=== PATIENT | female | born 1940 | race Caucasian/White ===

== ENCOUNTER 2018-10-09 10:26 | Observation (INO) | payer MEDICARE ==
[~2018-10-09] VITALS: Ht 152.4 cm; Wt 61.0 kg
--- NOTE | 2018-10-09 11:11 | NUR ---
LAB AND XRAY IN WITH PATIENT AT THIS TIME.
--- NOTE | 2018-10-09 11:15 | NUR ---
ALEX SBAR TO BURAK JOHNSON
[2018-10-09 11:30] LABS: BASOPHILS # (AUTO) 0.1 X10'3 (0-0.2); BASOPHILS % (AUTO) 1.3 % (0-1); EOSINOPHILS # (AUTO) 0.2 X10'3 (0-0.9); EOSINOPHILS % (AUTO) 3.5 % (0-6); HEMATOCRIT 39.2 % (35.0-45.0); HEMOGLOBIN 13.5 g/dl (12.0-16.0); LYMPHOCYTES # (AUTO) 2.1 X10'3 (1.1-4.8); MEAN CORPUSCULAR HEMOGLOBIN 31.4 PG (27.0-31.0); MEAN CORPUSCULAR HGB CONC 34.4 g/dL (33.0-36.5); MEAN CORPUSCULAR VOLUME 91.2 FL (78-98); MEAN PLATELET VOLUME 7.9 FL (7.4-10.4); MONOCYTES # (AUTO) 0.6 X10'3 (0-0.9); MONOCYTES % (AUTO) 10.1 % (2-12); NEUTROPHILS # (AUTO) 3.3 X10'3 (1.8-7.7); NEUTROPHILS % (AUTO) 52.1 % (42-75); PLATELET COUNT 403 X10'3 (140-440); RED CELL DISTRIBUTION WIDTH 13.5 % (11.5-14.5); WHITE BLOOD COUNT 6.3 X10'3 (4.5-11.0)
[2018-10-09 11:46] LABS: ALANINE AMINOTRANSFERASE 21 U/L (12-78); ALBUMIN 3.9 G/DL (3.4-5.0); ALBUMIN/GLOBULIN RATIO 1.1 (1.1-1.5); ALKALINE PHOSPHATASE 72 IU/L (46-116); ANION GAP 7 (8-16); ASPARTATE AMINO TRANSFERASE 18 U/L (10-37); BILIRUBIN,TOTAL 0.4 MG/DL (0.1-1.0); BLOOD UREA NITROGEN 12 MG/DL (7-18); BUN/CREATININE RATIO 16.7 (6.6-38.0); CALCIUM 9.6 MG/DL (8.5-10.1); CHLORIDE 102 MMOL/L (99-107); CREATININE 0.72 MG/DL (0.40-0.90); GLUCOSE 82 MG/DL (70-104); POTASSIUM 4.1 MMOL/L (3.5-5.1); SODIUM 139 MMOL/L (135-145); TOTAL CARBON DIOXIDE 29.6 MMOL/L (24-32); TOTAL PROTEIN 7.6 G/DL (6.4-8.2); eGFR 78 ML/MIN
[2018-10-09 11:53] LABS: MAGNESIUM 2.2 MG/DL (1.5-2.4)
[2018-10-09] MEDS ORDERED: MAGN500C16 PO (12:21)
[2018-10-09] MEDS ORDERED: CYAN1TAB41 PO (12:21)
[2018-10-09] MEDS ORDERED: OMEG1CAP13 PO (12:21)
[2018-10-09] MEDS ORDERED: XAL0.005OS OP (12:21)
[2018-10-09] MEDS ORDERED: MULT1TAB74 PO (12:21)
[2018-10-09] MEDS ORDERED: LACT1CAP65 PO (12:21)
[2018-10-09] MEDS ORDERED: ESCI5TAB PO (12:21)
[2018-10-09] MEDS ORDERED: ACET325C5 PO (12:21)
[2018-10-09] MEDS ORDERED: cq10 PO (12:21)
[2018-10-09] MEDS ORDERED: OMEP20TA23 PO (12:21)
[2018-10-09] MEDS ORDERED: TURM538C PO (12:21)
[2018-10-09] MEDS ORDERED: FLAX10007 PO (12:21)
[2018-10-09] MEDS ORDERED: LUTE1CAP5 PO (12:21)
[2018-10-09] MEDS ORDERED: RED600CA2 PO (12:21)
[2018-10-09] MEDS ORDERED: DORZ10DR18 EACHEYE (12:21)
[2018-10-09] MEDS ORDERED: MELA5TAB12 PO (12:21)
[2018-10-09] MEDS ORDERED: LEVO112T5 PO (12:21)
[2018-10-09] MEDS ORDERED: nitroGLYCERIN 0.4mg/hour patch TD ONE (12:40)
[2018-10-09] MEDS ORDERED: enoxaparin 100mg/ml syringe SUBCUT ONE (12:40)
[2018-10-09] MEDS ORDERED: potassium Cl 40MEQ/NS 500ml 500 ML IV PRN ×2 (12:45)
[2018-10-09] MEDS ORDERED: magnesium Cl slow-release 64mg tablet PO PRN (12:45)
[2018-10-09] MEDS ORDERED: ondansetron/PF 4mg/2ml inj IV PRN (12:45)
[2018-10-09] MEDS ORDERED: magnesium 4gm in 100ml NS 100 ML IV PRN (12:45)
[2018-10-09] MEDS ORDERED: enoxaparin 60mg/0.6ml syringe SUBCUT ONE (12:45)
[2018-10-09] MEDS ORDERED: potassium Cl 20 mEq SR tablet PO PRN ×2 (12:45)
[2018-10-09] MEDS ORDERED: magnesium 2GM in 50ml NS 50 ML IV PRN (12:45)
[2018-10-09] MEDS ORDERED: MELA5CAP PO (12:59)
[2018-10-09] MEDS ORDERED: UBID300C PO (13:00)
[2018-10-09] MEDS ORDERED: OMEP-271 PO (13:02)
[2018-10-09] MEDS ORDERED: metoprolol tartrate 1mg/ml inj IV PRN (15:20)
[2018-10-09] MEDS ORDERED: aminophylline 250mg/10ml inj. IV PRN (15:20)
[2018-10-09] MEDS ORDERED: regadenoson 0.4mg/5ml syringe IV ONE (15:20)
[2018-10-09] MEDS ORDERED: nitroGLYCERIN 0.4mg SUBLingual tab SL PRN (15:20)
--- NOTE | 2018-10-09 15:41 | NUR ---
FLOOR UNABLE TO TAKE REPORT AT THIS TIME.
--- NOTE | 2018-10-09 16:37 | NUR ---
Patient in room [facility]. I have received report from Dread JOHNSON and had the opportunity to ask questions and assume patient care. patient appears stable . orientated to room . Daughter present.
[2018-10-09 16:39] VITALS: BP 121/75
[2018-10-09 18:00] VITALS: BP 122/59
--- NOTE | 2018-10-09 18:09 | NUR ---
Problems reprioritized. Patient report given, questions answered & plan of care reviewed with Latha Harden RN.
--- NOTE | 2018-10-09 18:49 | NUR ---
Patient in room [facility]. I have received report from ALEX Emmanuel and had the opportunity to ask questions and assume patient care. Addendum: 10/09/18 at 1850 by Lisa Espinoza RN Amended: Links added.
[2018-10-09] MEDS: levoTHYROXINE 112mcg tablet PO SCH (21:07)
[2018-10-09] MEDS: CITALOpram 10mg tablet PO SCH (21:07)
[2018-10-09] MEDS: acetaminophen 325mg tablet PO PRN (21:09)
[2018-10-09] MEDS: normal saline 1000ml 1,000 ML IV SCH (23:59)
[2018-10-10] VITALS (8 sets, daily range): BP systolic 122–165; BP diastolic 64–92
--- NOTE | 2018-10-10 04:57 | NUR ---
Dr. Santiago came in to see patient and cancelled stress test for today and he ordered to do heart cath instead. Fluids ordered as well. Placed new IV 18gauge. Spoke with the Aid about the prep,(shaving and changing sheets/gown)
[2018-10-10 05:50] LABS: ALBUMIN 3.3 G/DL (3.4-5.0); ANION GAP 6 (8-16); BLOOD UREA NITROGEN 15 MG/DL (7-18); BUN/CREATININE RATIO 21.4 (6.6-38.0); CALCIUM 9.4 MG/DL (8.5-10.1); CHLORIDE 107 MMOL/L (99-107); GLUCOSE 92 MG/DL (70-104); MAGNESIUM 2.1 MG/DL (1.5-2.4); SODIUM 141 MMOL/L (135-145); TOTAL CARBON DIOXIDE 28.5 MMOL/L (24-32); TROPONIN I 0.27 NG/ML (0.0-0.05); eGFR 81 ML/MIN
[2018-10-10 05:55] LABS: BASOPHILS # (AUTO) 0.1 X10'3 (0-0.2); EOSINOPHILS # (AUTO) 0.3 X10'3 (0-0.9); HEMATOCRIT 36.2 % (35.0-45.0); LYMPHOCYTES # (AUTO) 2.7 X10'3 (1.1-4.8); LYMPHOCYTES % (AUTO) 33.4 % (21-51); MEAN CORPUSCULAR HEMOGLOBIN 30.1 PG (27.0-31.0); MEAN CORPUSCULAR HGB CONC 33.2 g/dL (33.0-36.5); MEAN CORPUSCULAR VOLUME 90.7 FL (78-98); MONOCYTES # (AUTO) 0.7 X10'3 (0-0.9); NEUTROPHILS # (AUTO) 4.3 X10'3 (1.8-7.7); NEUTROPHILS % (AUTO) 52.6 % (42-75); PLATELET COUNT 362 X10'3 (140-440); RED BLOOD COUNT 3.99 X10'6 (4.20-5.60); RED CELL DISTRIBUTION WIDTH 13.4 % (11.5-14.5); WHITE BLOOD COUNT 8.1 X10'3 (4.5-11.0)
--- NOTE | 2018-10-10 06:15 | NUR ---
Patient in room [facility]. I have received report from ALEX Azul and had the opportunity to ask questions and assume patient care.
--- NOTE | 2018-10-10 06:48 | NUR ---
Problems reprioritized. Patient report given, questions answered & plan of care reviewed with ALEX SHAH.
[2018-10-10] MEDS: K and/or MAG REPLACEMENT MC SCH (06:56)
[2018-10-10] MEDS ORDERED: enoxaparin 60mg/0.6ml syringe SUBCUT SCH (08:00)
[2018-10-10] MEDS: normal saline 1000ml 1,000 ML IV SCH ×2 (10:02→20:45)
[2018-10-10] MEDS ORDERED: iohexol 350 MG/ML 50ML vial IV ONE (10:13)
[2018-10-10] MEDS ORDERED: LIDOcaine 1% (10mg/ml)w/preservative injection 20ml MDV ONE (10:13)
[2018-10-10] MEDS ORDERED: iohexol 350MG/ML 100ml bottle IV ONE (10:13)
--- NOTE | 2018-10-10 10:18 | NUR ---
Pt off the floor to angiogram
[2018-10-10] MEDS ORDERED: fentaNYL/PF 50MCG/1 ML 2ML syringe ONE (10:33)
[2018-10-10] MEDS ORDERED: midazolam 2 mg/2 ml injection ONE (10:33)
--- NOTE | 2018-10-10 11:17 | NUR ---
Pt returned to room 348A from angiogram Addendum: 10/10/18 at 1147 by Caity Fonseca RN Bing villanueva angio bandage CDI Addendum: 10/10/18 at 1707 by Caity Fonseca RN Dorsalis pedis pulse 2+
[2018-10-10] MEDS ORDERED: OXAZEpam 15mg capsule PO PRN (11:30)
[2018-10-10] MEDS ORDERED: nitroGLYCERIN 0.4mg SUBLingual tab SL PRN (11:30)
[2018-10-10] MEDS ORDERED: HYDROcodone/acetaminophen 10/325mg tab PO PRN (11:30)
[2018-10-10] MEDS ORDERED: HYDROcodone/acetaminophen 5mg/325mg tablet PO PRN (11:30)
[2018-10-10] MEDS ORDERED: ondansetron/PF 4mg/2ml inj IV PRN (11:30)
[2018-10-10] MEDS ORDERED: proCHLORperazine 10 MG/2 ml inj IV PRN (11:30)
--- NOTE | 2018-10-10 11:30 | NUR ---
Bing garcia CDI Addendum: 10/10/18 at 1707 by Caity Fonseca RN Dorsalis pedrobert pulse 2+
[2018-10-10] MEDS: clopidogrel 75mg tablet PO SCH (12:25)
[2018-10-10] MEDS: acetaminophen 325mg tablet PO PRN (12:25)
--- NOTE | 2018-10-10 12:45 | NUR ---
R groin angio bandage CDI. Dorsalis pedal pulse 2+.
--- NOTE | 2018-10-10 13:15 | NUR ---
R groin angio bandage CDI. Dorsalis pedal pulse 2+.
--- NOTE | 2018-10-10 14:15 | NUR ---
R groin angio bandage CDI. Dorsalis pedal pulse 2+.
--- NOTE | 2018-10-10 15:15 | NUR ---
R groin angio bandage CDI. Dorsalis pedal pulse 2+.
--- NOTE | 2018-10-10 17:13 | NUR ---
VS machine off, unable to document VS taken after final documented VS on PCT post op VS intervention.
--- NOTE | 2018-10-10 18:15 | NUR ---
Problems reprioritized. Patient report given, questions answered & plan of care reviewed with ALEX Azul.
[2018-10-10] MEDS: CITALOpram 10mg tablet PO SCH (20:45)
[2018-10-10] MEDS: levoTHYROXINE 112mcg tablet PO SCH (20:45)
[2018-10-11] VITALS: BP 159/82
[2018-10-11] MEDS: normal saline 1000ml 1,000 ML IV SCH (05:05)
[2018-10-11 05:38] LABS: BASOPHILS # (AUTO) 0.1 X10'3 (0-0.2); BASOPHILS % (AUTO) 0.8 % (0-1); EOSINOPHILS # (AUTO) 0.2 X10'3 (0-0.9); EOSINOPHILS % (AUTO) 1.9 % (0-6); HEMATOCRIT 35.4 % (35.0-45.0); HEMOGLOBIN 12.3 g/dl (12.0-16.0); LYMPHOCYTES # (AUTO) 2.3 X10'3 (1.1-4.8); MEAN CORPUSCULAR HEMOGLOBIN 31.5 PG (27.0-31.0); MEAN CORPUSCULAR HGB CONC 34.9 g/dL (33.0-36.5); MEAN CORPUSCULAR VOLUME 90.3 FL (78-98); MEAN PLATELET VOLUME 8.1 FL (7.4-10.4); MONOCYTES % (AUTO) 10.7 % (2-12); NEUTROPHILS # (AUTO) 5.5 X10'3 (1.8-7.7); NEUTROPHILS % (AUTO) 60.6 % (42-75); PLATELET COUNT 351 X10'3 (140-440); RED BLOOD COUNT 3.91 X10'6 (4.20-5.60); RED CELL DISTRIBUTION WIDTH 13.3 % (11.5-14.5)
--- NOTE | 2018-10-11 06:15 | NUR ---
Patient in room [facility]. I have received report from ALEX Colin and had the opportunity to ask questions and assume patient care.
[2018-10-11 06:30] VITALS: BP 121/56
--- NOTE | 2018-10-11 06:42 | NUR ---
Problems reprioritized. Patient report given, questions answered & plan of care reviewed with ALEX Carolina. Addendum: 10/11/18 at 0642 by Lisa Espinoza RN Amended: Links added.
[2018-10-11 07:08] LABS: ALBUMIN 3.1 G/DL (3.4-5.0); ANION GAP 10 (8-16); BLOOD UREA NITROGEN 10 MG/DL (7-18); BUN/CREATININE RATIO 18.9 (6.6-38.0); CALCIUM 8.8 MG/DL (8.5-10.1); CHLORIDE 107 MMOL/L (99-107); CREATININE 0.53 MG/DL (0.40-0.90); GLUCOSE 93 MG/DL (70-104); MAGNESIUM 1.9 MG/DL (1.5-2.4); POTASSIUM 3.6 MMOL/L (3.5-5.1); SODIUM 141 MMOL/L (135-145); TOTAL CARBON DIOXIDE 23.6 MMOL/L (24-32); eGFR > 90 ML/MIN
[2018-10-11] MEDS: K and/or MAG REPLACEMENT MC SCH (08:00)
[2018-10-11] MEDS: clopidogrel 75mg tablet PO SCH (08:37)
[2018-10-11] MEDS ORDERED: CLOP75TA35 PO (09:23)
[2018-10-11] MEDS ORDERED: ATOR10TA PO (09:30)
[2018-10-11] MEDS ORDERED: METO-539 PO (09:30)
[2018-10-11 11:00] VITALS: BP 128/71
[2018-10-11 14:18] LABS: CHOL/HDL RATIO 2.5 (0.00-4.99); CHOLESTEROL 163 MG/DL (0-200); HDL CHOLESTEROL 64 MG/DL (35-60); LDL CHOLESTEROL 82 MG/DL (50-100); TRIGLYCERIDES 119 MG/DL (20-135)
--- NOTE | 2018-10-11 14:45 | NUR ---
DC inst provided to pt. IV DC'd, tip intact. All belongings sent w/pt. Pt ambulated to front lobby w/PCT.
== END 2018-10-11 14:45 | disposition home or self-care (01) ==
LOC: ER 10:26 → ED HOLD 12:42 → EDBEDREQ 15:05 → SUR 3N 16:16
PROVIDERS: ADMIT Internal Medicine; ATTEND Internal Medicine
DX: R07.2 Precordial pain (principal); I21.4 Non-ST elevation (NSTEMI) myocardial infarction; K20.9 Esophagitis, unspecified; E03.9 Hypothyroidism, unspecified; I10 Essential (primary) hypertension; Z86.59 Personal history of other mental and behavioral disorders; R74.8 Abnormal levels of other serum enzymes; Z90.710 Acquired absence of both cervix and uterus; F32.9 Major depressive disorder, single episode, unspecified; Z98.890 Other specified postprocedural states
CPT/HCPCS: 36415; 71045; 80048; 80053; 80061; 83735; 83880; 84439; 84484; 85025; 87070; 93005; 93306; 93458; 96372; 99284; A6257; G0378; J1644; J2001; J2250; J3010; J7030; Q9967; 99152; A4620; C1760; C1769; J1650